=== PATIENT | male | born 1995 | race Caucasian/White ===

== ENCOUNTER 2019-10-19 14:07 | Emergency (ER) | payer OTHER ==
[~2019-10-19] VITALS: Wt 65.8 kg
[2019-10-19] MEDS ORDERED: BROMFED DM COU118 M2 PO (15:36)
== END 2019-10-19 15:45 | disposition home or self-care (01) ==
LOC: ED 14:07
DX: J06.9 Acute upper respiratory infection, unspecified (principal); F17.200 Nicotine dependence, unspecified, uncomplicated

== ENCOUNTER 2022-10-10 09:03 | Emergency (ER) | payer OTHER ==
[~2022-10-10] VITALS: Ht 177.8 cm; Wt 56.7 kg
[~2022-10-10 09:03] MED LIST: BROMFED DM COU118 M2 PO
[2022-10-10] MEDS ORDERED: AUGMENTIN XR 11 EACH PO (09:41)
[2022-10-11] MEDS ORDERED: AUGMENTIN XR 11 EACH PO (15:47)
== END 2022-10-10 09:59 | disposition home or self-care (01) ==
LOC: ED 09:03
DX: L03.213 Periorbital cellulitis (principal)

== ENCOUNTER 2024-10-05 11:15 | Emergency (ER) | payer MEDICAID ==
[~2024-10-05] VITALS: Ht 180.3 cm; Wt 56.7 kg
[~2024-10-05 11:15] MED LIST changes: +AUGMENTIN XR 11 EACH PO
== END 2024-10-05 11:35 | disposition home or self-care (01) ==
LOC: ED 11:15
DX: J02.9 Acute pharyngitis, unspecified (principal); R51.9 Headache, unspecified